=== PATIENT | male | born 1955 | race Caucasian/White ===

== ENCOUNTER 2017-04-05 22:00 | Emergency (ER) | payer OTHER ==
[~2017-04-05] VITALS: Ht 170.2 cm; Wt 69.0 kg
[2017-04-05 22:28] LABS: ABSOLUTE NEUTROPHILS 1.4 thou/uL (1.4-8.2); BASOPHILS 0.6 % (0.0-2.0); EOSINOPHILS 2.4 % (0.0-3.0); HEMATOCRIT 38.9 % (42.0-52.0); HEMOGLOBIN 13.2 gm/dL (14.0-18.0); LYMPHOCYTES 31.2 % (24.0-44.0); MCV 91.2 fL (80.0-100.0); MONOCYTES 7.6 % (1.0-8.0); PLATELET COUNT 52 thou/uL (150-400); POLYS 58.2 % (36.0-66.0); RBC 4.27 mil/uL (4.50-6.00); RDW 13.9 % (10.5-14.5); WBC 2.4 thou/uL (4.0-11.0)
[2017-04-05 22:30] LABS: MANUAL DIFF NO
[2017-04-05 22:38] LABS: CALCIUM 8.9 mg/dL (8.5-10.1); CREATININE 0.8 mg/dL (0.7-1.3); POTASSIUM 3.9 mmol/L (3.5-5.1)
[2017-04-05 22:45] LABS: TOTAL BILIRUBIN 0.5 mg/dL (<0.1-1.0); TOTAL PROTEIN 7.7 g/dL (6.4-8.2)
[2017-04-05 22:50] LABS: URINE BILIRUBIN NEGATIVE (Negative); URINE BLOOD TRACE (Negative); URINE COLOR YELLOW; URINE GLUCOSE-RANDOM* NEGATIVE (Negative); URINE KETONES NEGATIVE (Negative); URINE NITRITE NEGATIVE (Negative); URINE PROTEIN (DIPSTICK) NEGATIVE (Negative); URINE UROBILINOGEN 0.2 E.U./dl (0.2-1.0)
[2017-04-05 22:55] LABS: ANISOCYTOSIS 1+; POLYCHROMASIA OCCASIONAL
[2017-04-05] MEDS ORDERED: KRISTALOSE10 GM PO (23:53)
[2017-04-05] MEDS ORDERED: REGLAN 10 MG TA10 MG PO (23:53)
[2017-04-05] MEDS ORDERED: PEPCID20 MG PO (23:53)
[2017-04-06 00:02] LABS: PROTIME 10.3 Seconds (9.3-11.4)
[2017-04-06 00:32] VITALS: BP 128/78
== END 2017-04-06 00:33 | disposition home or self-care (01) ==
LOC: ER 22:00
PROVIDERS: Physician Assistant
DX: K59.00 Constipation, unspecified (principal); K31.84 Gastroparesis; Z91.041 Radiographic dye allergy status

== ENCOUNTER 2017-11-10 23:13 | Emergency (ER) | payer OTHER ==
[~2017-11-10] VITALS: Ht 170.2 cm; Wt 65.8 kg
[~2017-11-10 23:13] MED LIST: KRISTALOSE10 GM PO; PEPCID20 MG PO; REGLAN 10 MG TA10 MG PO
[2017-11-10 23:37] LABS: URINE BILIRUBIN NEGATIVE (Negative); URINE BLOOD NEGATIVE (Negative); URINE CLARITY CLEAR; URINE COLOR YELLOW; URINE GLUCOSE-RANDOM* NEGATIVE (Negative); URINE KETONES NEGATIVE (Negative); URINE LEUKOCYTES-REFLEX NEGATIVE (Negative); URINE NITRITE-REFLEX NEGATIVE (Negative); URINE PROTEIN (DIPSTICK) NEGATIVE (Negative); URINE SPECIFIC GRAVITY >= 1.030 (1.005-1.035)
[2017-11-10] MEDS ORDERED: TYLENOL325 MG PO (23:47)
[2017-11-10 23:48] LABS: HEMATOCRIT 39.1 % (42.0-52.0); HEMOGLOBIN 13.6 gm/dL (14.0-18.0); MCH 31.4 pg (26.0-34.0); MCHC 34.7 g/dL (28.0-37.0); MCV 90.5 fL (80.0-100.0); RBC 4.32 mil/uL (4.50-6.00); RDW 14.5 % (10.5-14.5); WBC 2.3 thou/uL (4.0-11.0)
[2017-11-10] MEDS ORDERED: IBUPROFEN 200200 M1 PO (23:48)
[2017-11-11 00:06] LABS: CALCIUM 9.2 mg/dL (8.5-10.1); POTASSIUM 4.1 mmol/L (3.5-5.1)
[2017-11-11 00:12] LABS: ALBUMIN 3.8 g/dL (3.4-5.0); TOTAL BILIRUBIN 0.4 mg/dL (<0.1-1.0); TOTAL PROTEIN 7.9 g/dL (6.4-8.2)
[2017-11-11 00:23] LABS: ABSOLUTE NEUTROPHILS 0.9 thou/uL (1.4-8.2); ANISOCYTOSIS SLIGHT; MACROCYTES SLIGHT; PLATELET COUNT 50 thou/uL (150-400)
[2017-11-11] MEDS ORDERED: SENNA-DOCUSATE1 EACH PO (02:52)
[2017-11-11] MEDS ORDERED: NORCO 5-325 TA1 EACH PO (02:52)
[2017-11-11 03:20] VITALS: BP 159/78
== END 2017-11-11 03:20 | disposition home or self-care (01) ==
LOC: ER 23:13
PROVIDERS: Emergency Medicine
DX: R10.10 Upper abdominal pain, unspecified (principal); F17.210 Nicotine dependence, cigarettes, uncomplicated; Z91.041 Radiographic dye allergy status